=== PATIENT | male | born 1965 | race Two or more races ===

== ENCOUNTER 2020-01-12 16:07 | Emergency (ER) | payer OTHER, SELFPAY ==
[~2020-01-12] VITALS: Ht 182.9 cm; Wt 113.6 kg
[2020-01-12 18:30] VITALS: BP 124/67
== END 2020-01-12 19:00 | disposition home or self-care (01) ==
LOC: EMS 16:07
DX: T85.628A Displacement of other specified internal prosthetic devices, implants and grafts, initial encounter (principal); R03.0 Elevated blood-pressure reading, without diagnosis of hypertension; F17.210 Nicotine dependence, cigarettes, uncomplicated; Z90.49 Acquired absence of other specified parts of digestive tract; E11.9 Type 2 diabetes mellitus without complications; Y83.8 Other surgical procedures as the cause of abnormal reaction of the patient, or of later complication, without mention of misadventure at the time of the procedure; Y82.8 Other medical devices associated with adverse incidents
CPT/HCPCS: Z7502